=== PATIENT | male | born 1990 | race Two or more races ===

== ENCOUNTER 2024-11-03 07:47 | Emergency (ER) | payer MEDICAID ==
[~2024-11-03] VITALS: Ht 177.8 cm; Wt 97.8 kg
[2024-11-03 08:23] VITALS: BP 136/82; PULSE 82; RESP 18; TEMP 98.5; O2SAT 98
[2024-11-03] MEDS: KETOROLAC TROMETH 30 MG/ML 1ML VIAL IM ONE (08:31)
[2024-11-03] MEDS ORDERED: DOXY-286 PO (08:52)
[2024-11-03] MEDS ORDERED: IBUP-1455 PO (08:52)
--- NOTE | 2024-11-03 08:52 | ED.PDOC ---
History of Present Illness(SKN HPI Comments 34-year-old male with a MHx presents for a possible abscess to the right cervical area. Patient notes he experiences the same abscess annually to the same location and the symptoms resolved spontaneously however patient was brought to the emergency department for a possible I and D and pain medication. Denies any associated symptoms such as chest pain shortness of breath trouble swallowing. Denies fevers chills nausea vomiting diarrhea and drainage from the affected side Chief Complaint: Abscess Time Seen by MD: 08:03 Primary Care Provider: NONE History of Present Illness: Nurses Notes, Medications, Allergies Allergies: Coded Allergies: NO KNOWN ALLERGIES (Unverified , 11/03/24) Information Source: Patient Mode of Arrival: Ambulatory Past Medical History PAST MEDICAL HISTORY: Denies Surgical History: Denies all surgeries Family History Family History: Reviewed,noncontributory to illness Social History Smoker: Non-Smoker Alcohol: Denies ETOH Use Drugs: Denies Drug Use All Other Systems: Reviewed and Negative (Per HPI) Physical Exam General Appearance: No Apparent Distress, Normal HEENT: Normal ENT Inspection, Pharynx Normal, TMs Normal Neck: Full Range of Motion, Non-Tender, Normal, Normal Inspection Respiratory: Chest Non-Tender, Lungs Clear, No Accessory Muscle Use, No Respiratory Distress, Normal Breath Sounds Cardiovascular: No Murmur, No Gallop, Regular Rate/Rhythm Breast Exam: Deferred Gastrointestinal: No Organomegaly, Non Tender, No Pulsatile Mass, Normal Bowel Sounds, Soft Genitalia: Deferred Pelvic: Deferred Rectal: Deferred Extremities: No calf tenderness, Normal capillary refill, Normal inspection, Normal range of motion, Non-tender, No pedal edema Musculoskeletal : Apperance: Normal Neurologic: Alert, No Motor Deficits, Normal Affect, Normal Mood, No Sensory Deficits Cerebellar Function: Normal Reflexes: Normal Skin: Dry, Normal Color, Warm Lymphatic: No Adenopathy Was a procedure done? Was a procedure done?: No Images 1 - 2 x 2 erythematous round firm nonfluctuant soft tissue swelling consistent with an inflamed cyst. TTP. No crepitus on palpation. No signs of streaking. Differential Diagnosis (INTG) Differential Diagnosis: Other X-Ray, Labs, Meds, VS Vital Signs Date Time Temp Pulse Resp B/P (MAP) Pulse Ox O2 Delivery O2 Flow Rate FiO2 11/03/24 08:23 98.5 82 18 136/82 (100) 98 98.5 11/03/24 08:23 82 18 98 Room Air 11/03/24 08:00 98.0 80 18 136/85 (102) 97 98.0 Current Medications Medications (Trade) Dose Ordered Sig/Ciro Route Start Time Stop Time Status Last Admin Ketorolac Tromethamine (Toradol Injection) 30 mg ONCE ONCE IM 11/03/24 08:30 11/03/24 08:31 DC 11/03/24 08:31 X-Ray, Labs, Meds, VS Comment This patient presents with signs and symptoms consistent with a cutaneous abscess. The abscess is localized without any evidence of deep soft tissue infection based on physical examination. The abscess is still quite firm, and the wound will not benefit from drainage at this time. Will start antibiotics and warm compresses. It is advised to return if symptoms worsen or do not resolve after completion of antibiotics. Differential diagnosis considered but not limited to: abscess, folliculitis, cellulitis. I also considered deep space infection, necrotizing fasciitis, sepsis, however, this is less likely as the patient does not have rapid expanding erythema or pain out of proportion to suggest necrotizing fasciitis. There is no evidence of sepsis on both a review of their vitals and clinical exam. Additional MDM Review of External, Non-ED records: External records reviewed. Discussion with independent historian (EMS, family) history obtained from the patient at bedside Chronic conditions affecting care: none Social determinants of health affecting care: none Consideration of admission (observation or admission): I considered escalation of care to admission for this patient, however given the reassuring workup, the patient is safe for outpatient management. Time of 1ST Reevaluation: 08:50 Reevaluation 1ST: Improved Patient Education/Counseling: Diagnosis, Treatment Family Education/Counseling: Diagnosis, Treatment Departure 1 Departure Time of Disposition: 08:51 Impression: Primary Impression: Abscess Disposition: 01 HOME / SELF CARE / HOMELESS Condition: Fair e-Prescriptions Ibuprofen Micronized (Ibuprofen) 800 Mg Tab 800 MG PO Q8HP PRN for 7 Days, #21 TAB 0 Refills Prov: ERIKA MOFFETT [employer]CRE[employer]TER 11/03/24 Doxycycline Hyclate (DOXYCYCLINE HYCLATE) 100 Mg Tab 1 TAB PO BID for 7 Days, #14 TAB 0 Refills Prov: ERIKA MOFFETT [employer] 11/03/24 Discharged With: Self Critical Care Note Critical Care Time?: No Stability Stability form required: No Heart Score Heart Score: Heart Score Response (Comments) Value History N/A 0 EKG N/A 0 Age N/A 0 Risk Factors N/A 0 Troponin N/A 0 Total 0 ERIKA MOFFETT NP November 03, 2024 08:52
== END 2024-11-03 09:02 | disposition home or self-care (01) ==
LOC: ER 07:47
DX: L02.11 Cutaneous abscess of neck (principal)
CPT/HCPCS: 96372; 99283; J1885